=== PATIENT | female | born 1950 | race American Indian/Alaskan Native ===

== ENCOUNTER 2018-08-21 15:10 | Emergency (ER) | payer MEDICARE, BC, OTHER ==
[2018-08-21] MEDS ORDERED: Ketorolac 60 MG/2 ML SDV IM ONE (16:45)
--- NOTE | 2018-08-21 16:50 | EDM.PDOC ---
ED HPI GENERAL MEDICAL PROBLEM - General Chief Complaint: Back Pain or Injury Stated Complaint: sent by [facility] Time Seen by Provider: 08/21/18 16:37 Source of Information: Reports: Patient History Limitations: Reports: No Limitations - History of Present Illness INITIAL COMMENTS - FREE TEXT/NARRATIVE: HISTORY AND PHYSICAL: History of present illness: Patient is a 67-year-old female presents to the ED today with concern for low back pain 3 days. Patient rates her pain a 9 out of 10 and states that the pain radiates down the right side of her back and into her buttocks. Patient states she does have a history of kidney infection in the past that the pains is similar to that. Patient denies any pain with urination or blood in her urine. Patient denies any saddle anesthesia or retention or loss of bowel and bladder function. Patient denies injury or trauma to her back. Patient states she has also have a history of low back pain per her baseline. Patient states she has not taken anything for her symptoms today. Patient denies fever, chills, chest pain, shortness of breath, or cough. Denies headache, neck stiff ness, change in vision, syncope, or near syncope. Denies nausea, vomiting, abdominal pain, diarrhea, constipation, or dysuria. Has not noted any blood in urine or stool. Patient has been eating and drinking appropriately. Review of systems: As per history of present illness and below otherwise all systems reviewed and negative. Past medical history: As per history of present illness and as reviewed below otherwise noncontributory. Surgical history: As per history of present illness and as reviewed below otherwise noncontributory. Social history: See social history for further information Family history: As per history of present illness and as reviewed below otherwise noncontributory. Physical exam: General: Patient is alert, oriented, and in no acute distress. Patient sitting comfortably on exam table. HEENT: Atraumatic, normocephalic, pupils equal and reactive bilaterally, negative for conjunctival pallor or scleral icterus, mucous membranes moist, TMs normal bilaterally, throat clear, neck supple, nontender, trachea midline. No drooling or trismus noted. No meningeal signs. No hot potato voice noted. Lungs: Clear to auscultation, breath sounds equal bilaterally, chest nontender. Heart: S1S2, regular rate and rhythm without overt murmur Abdomen: Soft, nondistended, nontender. Negative for masses or hepatosplenomegaly. Negative for costovertebral tenderness. Pelvis: Stable nontender. Genitourinary: Deferred. Rectal: Deferred. Skin: Intact, warm, dry. No lesions or rashes noted. Extremities/Musculoskeletal: Atraumatic, negative for cords or calf pain. Neurovascular unremarkable. Negative pain to palpation of the complete spinous process. Patient does have pain to palpation of the paraspinal muscles surrounding the lumbar spine more so to the right. Patient has pain to palpation over the gluteus muscle the right buttocks. No obvious deformities, step-offs, or crepitus noted of the complete spine. Range of motion of spine is limited due to pain. Neuro: Awake, alert, oriented. Cranial nerves II through XII unremarkable. Cerebellum unremarkable. Motor and sensory unremarkable throughout. Exam nonfocal. Notes: Discussed the importance for follow-up with a primary care provider. Voices understanding and is agreeable to plan of care. Denies any further questions or concerns at this time. Diagnostics: Lumbar CT, UA Therapeutics: Toradol Prescription: Diclofenac, Flexeril Impression: Degenerative low back/lumbar disease Acute on chronic low back pain Plan: 1. Rest, ice, elevate the affected area. You can apply ice and or heat 15 minutes on, 15 minutes off. 2. Tylenol as directed for pain management or discomfort. Take medication as prescribed. 3. Follow up with the Orthopedic provider and primary care provider as discussed. Return to the ED as needed and as discussed. Definitive disposition and diagnosis as appropriate pending reevaluation and review of above. 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 Immunologic History: Reports: None Oncologic (Cancer) History: Reports: None Dermatologic History: Reports: None - Infectious Disease History Infectious Disease History: Reports: Chicken Pox, Measles - Past Surgical History Head Surgeries/Procedures: Reports: None HEENT Surgical History: Reports: Other (See Below) Social & Family History - Family History Family Medical History: Noncontributory - Tobacco Use Smoking Status *Q: Never Smoker Second Hand Smoke Exposure: No - Caffeine Use Caffeine Use: Reports: Coffee - Recreational Drug Use Recreational Drug Use: No ED ROS GENERAL - Review of Systems Review Of Systems: ROS reveals no pertinent complaints other than HPI. ED EXAM,LOWER BACK PAIN/INJURY - Physical Exam Exam: See Below (See dictation) Course - Vital Signs Last Recorded V/S: Last Vital Signs Temp 36.6 C 08/21/18 16:28 Pulse 74 08/21/18 16:28 Resp 16 08/21/18 16:28 BP 107/58 L 08/21/18 16:28 Pulse Ox 95 08/21/18 16:28 - Orders/Labs/Meds Labs: Laboratory Tests 08/21/18 Range/Units 17:50 Urine Color YELLOW Urine Appearance CLEAR Urine pH 5.5 (5.0-8.0) Ur Specific [place] 1.010 (1.001-1.035) Urine Protein NEGATIVE (NEGATIVE) mg/dL Urine Glucose (UA) >=1000 (NEGATIVE) mg/dL Urine Ketones NEGATIVE (NEGATIVE) mg/dL Urine Occult Blood NEGATIVE (NEGATIVE) Urine Nitrite NEGATIVE (NEGATIVE) Urine Bilirubin NEGATIVE (NEGATIVE) Urine Urobilinogen 0.2 (<2.0) EU/dL Ur Leukocyte Esterase NEGATIVE (NEGATIVE) Meds: Medications Discontinued Medications Generic Name Dose Route Start Last Admin Trade Name Freq PRN Reason Stop Dose Admin Ketorolac Tromethamine 60 mg 08/21/18 16:45 08/21/18 16:58 Toradol IM 08/21/18 16:46 60 mg ONETIME ONE Administration Departure - Departure Time of Disposition: 19:17 Disposition: Home, Self-Care 01 Clinical Impression: Acute exacerbation of chronic low back pain - Discharge Information Referrals: PCP,Unknown [Primary Care Provider] - Forms: ED Department Discharge Additional Instructions: The following information is given to patients seen in the emergency department who are being discharged to home. This information is to outline your options for follow-up care. We provide all patients seen in our emergency department with a follow-up referral. The need for follow-up, as well as the timing and circumstances, are variable depending upon the specifics of your emergency department visit. If you don't have a primary care physician on staff, we will provide you with a referral. We always advise you to contact your personal physician following an emergency department visit to inform them of the circumstance of the visit and for follow-up with them and/or the need for any referrals to a consulting specialist. The emergency department will also refer you to a specialist when appropriate. This referral assures that you have the opportunity for follow-up care with a specialist. All of these measure are taken in an effort to provide you with optimal care, which includes your follow-up. Under all circumstances we always encourage you to contact your private physician who remains a resource for coordinating your care. When calling for follow-up care, please make the office aware that this follow-up is from your recent emergency room visit. If for any reason you are refused follow-up, please contact the [facility] Emergency Department at and asked to speak to the emergency department charge nurse. [facility] [address] [place] [id number] [place] [address] 1. Rest, ice, elevate the affected area. You can apply ice and or heat 15 minutes on, 15 minutes off. 2. Tylenol as directed for pain management or discomfort. Take medication as prescribed. 3. Follow up with the Orthopedic provider and primary care provider as discussed. Return to the ED as needed and as discussed.
--- NOTE | 2018-08-21 19:12 | CT ---
INDICATION: Low back pain x4 days TECHNIQUE: CT lumbar spine without contrast. COMPARISON: None FINDINGS: Vertebral alignment: Alignment is normal. Vertebrae: There are no fractures or suspicious bony lesions. Discs and facet joints: Disc space narrowing and degenerative changes L1-L2. Extraspinal findings: Prevertebral soft tissues and visualized retroperitoneum are unremarkable. IMPRESSION: Disc space narrowing and degenerative changes at L1-L2. Dictated by Flaquito Lopez MD @ 08/21/2018 7:10:12 PM Please note that all CT scans at this facility use dose modulation, iterative reconstruction, and/or weight-based dosing when appropriate to reduce radiation dose to as low as reasonably achievable. Dictated by: Flaquito Lopez MD @ 08/21/2018 19:10:34 (Electronically Signed)
[2018-08-21 19:30] VITALS: BP 106/60
== END 2018-08-21 19:30 | disposition home or self-care (01) ==
LOC: MW.ED 15:10
DX: M51.16 Intervertebral disc disorders with radiculopathy, lumbar region (principal); E11.9 Type 2 diabetes mellitus without complications; I10 Essential (primary) hypertension; J44.9 Chronic obstructive pulmonary disease, unspecified; Z79.84 Long term (current) use of oral hypoglycemic drugs; Z88.5 Allergy status to narcotic agent
CPT/HCPCS: 72131; 81003; 96372; 99284; J1885

== ENCOUNTER 2019-05-16 21:31 | Emergency (ER) | payer MEDICARE, BC, OTHER ==
[2019-05-16 21:43] VITALS: BP 132/63; PULSE 83
[2019-05-16] MEDS ORDERED: Sodium Chloride 0.9% 10 ML Syringe FLUSH PRN (21:49)
[2019-05-16] MEDS ORDERED: Sodium Chloride 0.9% 2.5 ML Syringe FLUSH PRN (21:49)
--- NOTE | 2019-05-16 21:53 | EDM.PDOC ---
ED HPI GENERAL MEDICAL PROBLEM - General Chief Complaint: Diabetic Complaint Stated Complaint: BLOOD SUGAR HIGH Time Seen by Provider: 05/16/19 21:38 - History of Present Illness INITIAL COMMENTS - FREE TEXT/NARRATIVE: HISTORY AND PHYSICAL: History of present illness: The patient is a 68-year-old female who follows at [facility] but admits that she has not been to see her provider in quite some time and presents with vague complaints of lightheadedness and feeling generalized weakness and feeling like she might pass out that started this evening. The patient says her blood sugar at home has been a little bit variable and some mornings it is 90s but the other morning it was in the 200s and she was concerned about her diabetes. Her blood sugar at home when this started was 250 and here it is 280. She says that she does not feel dizzy like the room is spinning and she does not have a headache chest pain or shortness of breath no nausea no vomiting and no diarrhea. She has been eating and drinking normally and she has had normal urine output and stools. She said that she did not feel a focal weakness but it was her whole body. She does tell me that she has a history of peripheral vascular disease in her legs but she has never been diagnosed with anything centrally. She is not sure the last time she has had a hemoglobin A1c to check her diabetes. The patient denies flulike symptoms and has not had a fever. Review of systems: As per history of present illness and below otherwise all systems reviewed and negative. Past medical history: As per history of present illness and as reviewed below otherwise noncontributory. Surgical history: As per history of present illness and as reviewed below otherwise noncontributory. Social history: No reported history of drug or alcohol abuse. Family history: As per history of present illness and as reviewed below otherwise noncontributory. Physical exam: General: Well-developed well-nourished female who is nontoxic and moves easily in the ED without distress. Vital signs are noted by me HEENT: Atraumatic, normocephalic, pupils reactive, negative for conjunctival pallor or scleral icterus, mucous membranes moist, throat clear, neck supple, nontender, trachea midline. Lungs: Clear to auscultation, breath sounds equal bilaterally, chest nontender. Heart: S1S2, regular, negative for clicks, rubs, or JVD. Abdomen: Soft, nondistended, nontender. Negative for masses or hepatosplenomegaly. Negative for costovertebral tenderness. Pelvis: Stable nontender. Genitourinary: Deferred. Rectal: Deferred. Extremities: Atraumatic, negative for cords or calf pain. Neurovascular unremarkable. No pedal edema or leg asymmetry Neuro: Awake, alert, oriented. Cranial nerves II through XII unremarkable. Cerebellum unremarkable. Motor and sensory unremarkable throughout. Exam nonfocal. Diagnostics: EKG CBC CMP orthostatic vitals hemoglobin A1c troponin TSH UA with reflex CT scan of the head chest x-ray Therapeutics: IV O2 monitor IV fluids She states that she is feeling better and she is aware of her lab abnormalities including her hemoglobin A1c and the need for follow-up. At this point we will finish her second IV fluid bolus and she will have received a total of 1 L of fluid and I will repeat her orthostatics and make sure that we get a UA. She is aware of my concerns and pending these results we will plan for disposition. After the second IV fluid bolus the patient says she is feeling better and repeat orthostatics were performed and she is no longer orthostatic and is asymptomatic with performing this test. We will plan on follow-up at [facility] and I have strongly stressed to her the need for this follow-up to get better control on her diabetes as well as follow-up tongiovanni's visit. Did discuss with her her caffeine intake and the patient says that she usually drinks 1-2 pots of coffee a day and 1 glass of water. I stressed to her the need to push more hydrating fluids. Impression: Lightheadedness and generalized weakness, orthostasis resolved, mild dehydration /renal insufficiency, poorly controlled diabetes stable Definitive disposition and diagnosis as appropriate pending reevaluation and review of above. - Related Data Allergies Allergy/AdvReac Type Severity Reaction Status Date / Time meperidine [From Demerol] Allergy Cannot Verified 05/16/19 21:35 Remember Home Meds: Home Meds Diabetes Medication 12/23/15 [History] metFORMIN [Glucophage XR] 1,000 mg PO BIDMEALS 08/21/18 [History] Carvedilol [Coreg] 3.125 mg PO BID 05/16/19 [History] Clopidogrel [Plavix] 75 mg PO DAILY 05/16/19 [History] Empagliflozin [Jardiance] 10 mg PO DAILY 05/16/19 [History] Folic Acid 0.4 mg PO DAILY 05/16/19 [History] Gabapentin [Neurontin] 300 mg PO BEDTIME 05/16/19 [History] Losartan/Hydrochlorothiazide [Hyzaar 50-12.5 Tablet] 1 each PO DAILY 05/16/19 [ History] Magnesium Oxide 400 mg PO DAILY 05/16/19 [History] Simvastatin 20 mg PO DAILY 05/16/19 [History] Past Medical History Cardiovascular History: Reports: Hypertension, PVD Respiratory History: Reports: COPD Gastrointestinal History: Reports: None Genitourinary History: Reports: None [employer] History: Reports: Musculoskeletal History: Reports: None Neurological History: Reports: None Psychiatric History: Reports: None Endocrine/Metabolic History: Reports: Diabetes, Type II Hematologic History: Reports: Other (See Below) Other Hematologic History: clogged artery in leg. Immunologic History: Reports: None Oncologic (Cancer) History: Reports: None Dermatologic History: Reports: None - Infectious Disease History Infectious Disease History: Reports: None - Past Surgical History Head Surgeries/Procedures: Reports: None HEENT Surgical History: Reports: Other (See Below) Other Cardiovascular Surgeries/Procedures: angiogram Social & Family History - Family History Family Medical History: Noncontributory - Tobacco Use Smoking Status *Q: Never Smoker - Caffeine Use Caffeine Use: Reports: None - Recreational Drug Use Recreational Drug Use: No ED ROS GENERAL - Review of Systems Review Of Systems: Comprehensive ROS is negative, except as noted in HPI. ED EXAM GENERAL NO PERIP PULSE - Physical Exam Exam: See Below (see dictation) Course - Vital Signs Last Recorded V/S: Last Vital Signs Temp 36.6 C 05/16/19 21:41 Pulse 83 05/16/19 21:41 Resp 18 05/16/19 21:41 BP 132/63 05/16/19 21:41 Pulse Ox 98 05/16/19 21:41 Orthostatic Blood Pressure [ 109/56 Standing] Orthostatic Blood Pressure [ 141/70 Sitting] Orthostatic Blood Pressure [ 121/64 Supine] - Orders/Labs/Meds Orders: Active Orders 24 hr Category Date Time Status Cardiac Monitoring [RC] . DIRECTED Care 05/16/19 21:49 Active EKG Documentation Completion [RC] STAT Care 05/16/19 21:49 Active Glucose [Blood Glucose Check, Bedside] [RC] ONETIME Care 05/16/19 21:36 Active Orthostatic Vital Signs [RC] ASDIRECTED Care 05/16/19 21:49 Active Oxygen Therapy, ED [RC] ASDIRECTED Care 05/16/19 21:49 Active Pulse Oximetry [RC] ASDIRECTED Care 05/16/19 21:49 Active Sodium Chloride 0.9% [Normal Saline] 1,000 ml Med 05/16/19 22:45 Active IV ASDIRECTED Sodium Chloride 0.9% [Normal Saline] 500 ml Med 05/16/19 22:00 Active IV STAT Sodium Chloride 0.9% [Saline Flush] Med 05/16/19 21:49 Active 10 ml FLUSH ASDIRECTED PRN Sodium Chloride 0.9% [Saline Flush] Med 05/16/19 21:49 Active 2.5 ml FLUSH ASDIRECTED PRN Saline Lock Insert [OM.PC] Stat Oth 05/16/19 21:49 Ordered Medication Orders Sodium Chloride (Normal Saline) 500 mls @ 999 mls/hr IV STAT CAMILO Last Admin: 05/16/19 21:59 Dose: 999 mls/hr Sodium Chloride (Normal Saline) 1,000 mls @ 125 mls/hr IV ASDIRECTED CAMILO Last Infusion: 05/16/19 23:31 Dose: 125 mls/hr Admin: 05/16/19 23:11 Dose: 125 mls/hr Sodium Chloride (Saline Flush) 10 ml FLUSH ASDIRECTED PRN PRN Reason: Keep Vein Open Sodium Chloride (Saline Flush) 2.5 ml FLUSH ASDIRECTED PRN PRN Reason: Keep Vein Open Labs: Laboratory Tests 05/16/19 05/16/19 05/16/19 Range/Units 21:48 21:48 21:48 WBC 7.75 (4.0-11.0) K/uL RBC 4.68 (4.30-5.90) M/uL Hgb 13.9 (12.0-16.0) g/dL Hct 42.4 (36.0-46.0) % MCV 90.6 (80.0-98.0) fL MCH 29.7 (27.0-32.0) pg MCHC 32.8 (31.0-37.0) g/dL RDW Std Deviation 50.0 (28.0-62.0) fl RDW Coeff of Tabitha 15 (11.0-15.0) % Plt Count 261 (150-400) K/uL MPV 9.60 (7.40-12.00) fL Neut % (Auto) 63.0 (48.0-80.0) % Lymph % (Auto) 25.2 (16.0-40.0) % [place] % (Auto) 8.0 (0.0-15.0) % Eos % (Auto) 2.5 (0.0-7.0) % Baso % (Auto) 1.3 (0.0-1.5) % Neut # (Auto) 4.9 (1.4-5.7) K/uL Lymph # (Auto) 2.0 (0.6-2.4) K/uL [place] # (Auto) 0.6 (0.0-0.8) K/uL Eos # (Auto) 0.2 (0.0-0.7) K/uL Baso # (Auto) 0.1 (0.0-0.1) K/uL Nucleated RBC % 0.0 /100WBC Nucleated RBCs # 0 K/uL Sodium 128 L (136-145) mmol/L Potassium 4.8 (3.5-5.1) mmol/L Chloride 99 (98-107) mmol/L Carbon Dioxide 27.2 (21.0-32.0) mmol/L BUN 29 H (7.0-18.0) mg/dL Creatinine 1.7 H (0.6-1.0) mg/dL Est Cr Clr Drug Dosing 23.57 mL/min Estimated GFR (MDRD) 29.8 ml/min Glucose 295 H (74-106) mg/dL Hemoglobin A1c 10.2 H (4.5-6.2) % Calcium 9.2 (8.5-10.1) mg/dL Total Bilirubin 0.2 (0.2-1.0) mg/dL AST 7 L (15-37) IU/L ALT 15 (14-63) IU/L Alkaline Phosphatase 120 H (46-116) U/L Troponin I < 0.050 (0.000-0.056) ng/mL Total Protein 7.5 (6.4-8.2) g/dL Albumin 3.8 (3.4-5.0) g/dL Globulin 3.7 (2.6-4.0) g/dL Albumin/Globulin Ratio 1.0 (0.9-1.6) TSH 3rd Generation 1.25 (0.36-3.74) uIU/mL Urine Color Urine Appearance Urine pH (5.0-8.0) Ur Specific [place] (1.001-1.035) Urine Protein (NEGATIVE) mg/dL Urine Glucose (UA) (NEGATIVE) mg/dL Urine Ketones (NEGATIVE) mg/dL Urine Occult Blood (NEGATIVE) Urine Nitrite (NEGATIVE) Urine Bilirubin (NEGATIVE) Urine Urobilinogen (<2.0) EU/dL Ur Leukocyte Esterase (NEGATIVE) 05/16/19 Range/Units 23:35 WBC (4.0-11.0) K/uL RBC (4.30-5.90) M/uL Hgb (12.0-16.0) g/dL Hct (36.0-46.0) % MCV (80.0-98.0) fL MCH (27.0-32.0) pg MCHC (31.0-37.0) g/dL RDW Std Deviation (28.0-62.0) fl RDW Coeff of Tabitha (11.0-15.0) % Plt Count (150-400) K/uL MPV (7.40-12.00) fL Neut % (Auto) (48.0-80.0) % Lymph % (Auto) (16.0-40.0) % [place] % (Auto) (0.0-15.0) % Eos % (Auto) (0.0-7.0) % Baso % (Auto) (0.0-1.5) % Neut # (Auto) (1.4-5.7) K/uL Lymph # (Auto) (0.6-2.4) K/uL [place] # (Auto) (0.0-0.8) K/uL Eos # (Auto) (0.0-0.7) K/uL Baso # (Auto) (0.0-0.1) K/uL Nucleated RBC % /100WBC Nucleated RBCs # K/uL Sodium (136-145) mmol/L Potassium (3.5-5.1) mmol/L Chloride (98-107) mmol/L Carbon Dioxide (21.0-32.0) mmol/L BUN (7.0-18.0) mg/dL Creatinine (0.6-1.0) mg/dL Est Cr Clr Drug Dosing mL/min Estimated GFR (MDRD) ml/min Glucose (74-106) mg/dL Hemoglobin A1c (4.5-6.2) % Calcium (8.5-10.1) mg/dL Total Bilirubin (0.2-1.0) mg/dL AST (15-37) IU/L ALT (14-63) IU/L Alkaline Phosphatase (46-116) U/L Troponin I (0.000-0.056) ng/mL Total Protein (6.4-8.2) g/dL Albumin (3.4-5.0) g/dL Globulin (2.6-4.0) g/dL Albumin/Globulin Ratio (0.9-1.6) TSH 3rd Generation (0.36-3.74) uIU/mL Urine Color YELLOW Urine Appearance CLEAR Urine pH 7.5 (5.0-8.0) Ur Specific [place] 1.015 (1.001-1.035) Urine Protein NEGATIVE (NEGATIVE) mg/dL Urine Glucose (UA) >=1000 (NEGATIVE) mg/dL Urine Ketones NEGATIVE (NEGATIVE) mg/dL Urine Occult Blood NEGATIVE (NEGATIVE) Urine Nitrite NEGATIVE (NEGATIVE) Urine Bilirubin NEGATIVE (NEGATIVE) Urine Urobilinogen 0.2 (<2.0) EU/dL Ur Leukocyte Esterase NEGATIVE (NEGATIVE) Meds: Medications Generic Name Dose Route Start Last Admin Trade Name Freq PRN Reason Stop Dose Admin Sodium Chloride 500 mls @ 999 mls/hr 05/16/19 22:00 05/16/19 21:59 Normal Saline IV 999 mls/hr STAT CAMILO Administration Sodium Chloride 1,000 mls @ 125 mls/hr 05/16/19 22:45 05/16/19 23:31 Normal Saline IV 125 mls/hr ASDIRECTED CAMILO Infusion Sodium Chloride 10 ml 05/16/19 21:49 Saline Flush FLUSH ASDIRECTED PRN Keep Vein Open Sodium Chloride 2.5 ml 05/16/19 21:49 Saline Flush FLUSH ASDIRECTED PRN Keep Vein Open Departure - Departure Time of Disposition: 00:16 Disposition: Home, Self-Care 01 Condition: Good Clinical Impression: Lightheadedness, Orthostasis, Poorly controlled diabetes mellitus - Discharge Information Referrals: PCP,None [Primary Care Provider] - Forms: ED Department Discharge Additional Instructions: The following information is given to patients seen in the emergency department who are being discharged to home. This information is to outline your options for follow-up care. We provide all patients seen in our emergency department with a follow-up referral. The need for follow-up, as well as the timing and circumstances, are variable depending upon the specifics of your emergency department visit. If you don't have a primary care physician on staff, we will provide you with a referral. We always advise you to contact your personal physician following an emergency department visit to inform them of the circumstance of the visit and for follow-up with them and/or the need for any referrals to a consulting specialist. The emergency department will also refer you to a specialist when appropriate. This referral assures that you have the opportunity for followup care with a specialist. All of these measure are taken in an effort to provide you with optimal care, which includes your followup. Under all circumstances we always encourage you to contact your private physician who remains a resource for coordinating your care. When calling for followup care, please make the office aware that this follow-up is from your recent emergency room visit. If for any reason you are refused follow-up, please contact the [facility] emergency department at and ask to speak to the emergency department charge nurse. [facility]- [facility] Medicine and Family [address] [address] Push hydration and try to reduce your caffeine intake. Please connect with your provider at [facility] or 1 of our providers for reevaluation and further care and to get better control on your diabetic management. Return to ER as needed and as discussed Sepsis Event Note - Evaluation Sepsis Screening Result: No Definite Risk - Focused Exam Vital Signs: Vital Signs Temp Pulse Resp BP Pulse Ox 05/16/19 21:41 36.6 C 83 18 132/63 98 Date Exam was Performed: 05/17/19 Time Exam was Performed: 00:15 - My Orders Last 24 Hours: My Active Orders 05/16/19 21:49 Cardiac Monitoring [RC] . DIRECTED EKG Documentation Completion [RC] STAT Orthostatic Vital Signs [RC] ASDIRECTED Oxygen Therapy, ED [RC] ASDIRECTED Pulse Oximetry [RC] ASDIRECTED Sodium Chloride 0.9% [Saline Flush] 10 ml FLUSH ASDIRECTED PRN Sodium Chloride 0.9% [Saline Flush] 2.5 ml FLUSH ASDIRECTED PRN Saline Lock Insert [OM.PC] Stat 05/16/19 22:00 Sodium Chloride 0.9% [Normal Saline] 500 ml IV STAT 05/16/19 22:45 Sodium Chloride 0.9% [Normal Saline] 1,000 ml IV ASDIRECTED - Assessment/Plan Last 24 Hours: My Active Orders 05/16/19 21:49 Cardiac Monitoring [RC] . DIRECTED EKG Documentation Completion [RC] STAT Orthostatic Vital Signs [RC] ASDIRECTED Oxygen Therapy, ED [RC] ASDIRECTED Pulse Oximetry [RC] ASDIRECTED Sodium Chloride 0.9% [Saline Flush] 10 ml FLUSH ASDIRECTED PRN Sodium Chloride 0.9% [Saline Flush] 2.5 ml FLUSH ASDIRECTED PRN Saline Lock Insert [OM.PC] Stat 05/16/19 22:00 Sodium Chloride 0.9% [Normal Saline] 500 ml IV STAT 05/16/19 22:45 Sodium Chloride 0.9% [Normal Saline] 1,000 ml IV ASDIRECTED
[2019-05-16] MEDS ORDERED: Sodium Chloride 0.9% 500 ML IV SCH (22:00)
[2019-05-16 22:09] LABS: HEMOGLOBIN A1C 10.2 % (4.5-6.2)
[2019-05-16 22:29] LABS: BLOOD UREA NITROGEN,BUN 29 mg/dL (7.0-18.0); CARBON DIOXIDE,CO2 27.2 mmol/L (21.0-32.0); CHLORIDE,CL 99 mmol/L (98-107); GLUCOSE RANDOM 295 mg/dL (74-106); POTASSIUM,K 4.8 mmol/L (3.5-5.1); SODIUM,NA 128 mmol/L (136-145)
--- NOTE | 2019-05-16 22:34 | CT ---
INDICATION: Dizziness TECHNIQUE: CT head without contrast. COMPARISON: None available FINDINGS: There is mild age-related cortical atrophy. The ventricles are within normal limits. There is no mass effect or midline shift. A small low-density focus inferior to the left basal ganglia could represent a small old lacunar infarct or a dilated perivascular space. Punctate caudate head hypodensities may represent tiny lacunar infarcts. There is no loss of cazares-white differentiation. There is no evidence of an acute intracranial hemorrhage. No acute calvarial fracture is seen. There is opacification of the hypoplastic left frontal sinus. The mastoid air cells are clear. Post cataract surgery changes are seen. IMPRESSION: No evidence of an acute intracranial hemorrhage, mass effect or loss of cazares-white differentiation. Dictated by Sean Rust MD @ 05/16/2019 10:32:47 PM Please note that all CT scans at this facility use dose modulation, iterative reconstruction, and/or weight-based dosing when appropriate to reduce radiation dose to as low as reasonably achievable. Dictated by: Sean Rust MD @ 05/16/2019 22:32:51 (Electronically Signed)
[2019-05-16] MEDS ORDERED: Sodium Chloride 0.9% 1,000 ML IV SCH (22:45)
--- NOTE | 2019-05-16 23:09 | CR ---
INDICATION: WEAKNESS/DIZZINESS. 1 IMAGE SENT. TECHNIQUE: Chest 1 view. COMPARISON: None. FINDINGS: Cardiovascular and mediastinum: Heart size and vasculature are normal in caliber and appearance. Mediastinum is within normal limits. Lungs and pleural space: Lungs are clear. No sign of infiltrate or mass. No sign of pleural effusion. No pneumothorax. Bones and soft tissues: No significant findings. IMPRESSION: Unremarkable chest. Dictated by: Flaquito Lopez MD @ 05/16/2019 23:08:32 (Electronically Signed)
== END 2019-05-17 00:37 | disposition home or self-care (01) ==
LOC: MW.ED 21:31
DX: E86.0 Dehydration (principal); R53.1 Weakness; E11.65 Type 2 diabetes mellitus with hyperglycemia; N28.9 Disorder of kidney and ureter, unspecified; I10 Essential (primary) hypertension; J44.9 Chronic obstructive pulmonary disease, unspecified; Z88.8 Allergy status to other drugs, medicaments and biological substances; Z79.84 Long term (current) use of oral hypoglycemic drugs; Z79.02 Long term (current) use of antithrombotics/antiplatelets; Z79.899 Other long term (current) drug therapy
CPT/HCPCS: 36415; 70450; 71045; 80053; 81003; 83036; 84443; 84484; 85025; 93005; 96360; 96361; 99285; J7030; J7040; 99284

== ENCOUNTER 2022-02-08 06:35 | Day surgery (SDC) | payer MEDICARE, BC, OTHER ==
[2022-02-08] MEDS ORDERED: Naloxone 0.4 MG/ML SDV IVPUSH PRN (07:25)
[2022-02-08] MEDS ORDERED: Metoclopramide 10 MG/2 ML SDV IVPUSH PRN (07:25)
[2022-02-08] MEDS ORDERED: Ondansetron 4 MG/2 ML SDV IVPUSH PRN (07:25)
[2022-02-08] MEDS ORDERED: Albuterol 0.083% 2.5 MG/3 ML Neb Soln NEB PRN (07:25)
[2022-02-08] MEDS ORDERED: fentaNYL 50 MCG/ML SDV IVPUSH PRN (07:25)
[2022-02-08] MEDS ORDERED: HYDROmorphone 1 MG/ML Syringe IVPUSH PRN (07:25)
[2022-02-08] MEDS ORDERED: Morphine 2 MG/ML SYRINGE IVPUSH PRN (07:25)
[2022-02-08] MEDS ORDERED: Heparin Sodium 100 Units/ML 3 ML Syringe ONE (07:30)
[2022-02-08] MEDS ORDERED: Lactated Ringers 1,000 ML IV SCH (07:30)
[2022-02-08] MEDS ORDERED: Bupivacaine 0.5% 30 ML SDV ONE (07:30)
[2022-02-08] MEDS ORDERED: Lidocaine 1% 20 ML MDV ONE (07:31)
[2022-02-08] MEDS ORDERED: Propofol 200 MG/20 ML SDV ONE (07:36)
[2022-02-08] MEDS ORDERED: fentaNYL 100 MCG/2 ML SDV ONE (07:36)
[2022-02-08] MEDS ORDERED: Lidocaine 2% 5 ML SDV ONE ×2 (07:38→11:13)
[2022-02-08] MEDS ORDERED: Ondansetron 4 MG/2 ML SDV ONE (07:38)
[2022-02-08] MEDS ORDERED: Ketorolac 30 MG/ML SDV ONE (07:38)
[2022-02-08] MEDS ORDERED: Lidocaine 2% 11 ML Jelly Filled Syringe ONE (07:42)
[2022-02-08] MEDS ORDERED: ePHEDrine 50 MG/ML SDV ONE (08:24)
[2022-02-08 09:30] VITALS: PULSE 86
[2022-02-08 12:33] VITALS: BP 150/68
== END 2022-02-08 10:06 | disposition home or self-care (01) ==
LOC: MW.SDS 06:35
PROVIDERS: ATTEND Surgery
DX: C82.90 Follicular lymphoma, unspecified, unspecified site (principal); I10 Essential (primary) hypertension; J44.9 Chronic obstructive pulmonary disease, unspecified; E11.9 Type 2 diabetes mellitus without complications; F17.200 Nicotine dependence, unspecified, uncomplicated; I73.9 Peripheral vascular disease, unspecified; Z88.5 Allergy status to narcotic agent; Z79.84 Long term (current) use of oral hypoglycemic drugs; Z79.899 Other long term (current) drug therapy
CPT/HCPCS: 36561; 71045; 76000; 82947; A9270; J1642; J1885; J2405; J2704; J3010; J3490; J7120; 00532; 36415; 80053; 85025; 99100

== ENCOUNTER 2023-08-14 06:31 | Day surgery (SDC) | payer MEDICARE, BC, OTHER ==
[~2023-08-14 06:31] MED LIST: Sodium Chloride 0.9% 10 ML Syringe FLUSH PRN; Sodium Chloride 0.9% 2.5 ML Syringe FLUSH PRN; Sodium Chloride 0.9% 20 ML SDV IV PRN
[2023-08-14] MEDS ORDERED: Lidocaine 1% 2 ML ONE (07:17)
[2023-08-14] MEDS ORDERED: Bupivacaine 0.5% 30 ML SDV ONE (07:27)
[2023-08-14] MEDS ORDERED: Lidocaine 1% 20 ML MDV ONE (07:27)
[2023-08-14] MEDS: Lactated Ringers 1,000 ML IV SCH (07:31)
[2023-08-14] MEDS ORDERED: Ketamine HCL/NACL, ISO-OSM 50 MG/5 ML Syringe ONE (07:33)
[2023-08-14] MEDS ORDERED: Ondansetron 4 MG/2 ML SDV ONE (07:33)
[2023-08-14] MEDS ORDERED: propofoL 50 ML ONE (07:33)
[2023-08-14] MEDS ORDERED: Water For Injection, Sterile 20 ML ONE (07:42)
[2023-08-14] MEDS ORDERED: dexmedeTOMIDine HCl 200 MCG/2 ML SDV ONE (07:42)
[2023-08-14] MEDS ORDERED: Lidocaine 1% PF 2 ML SDV INJECT ONE (07:45)
[2023-08-14] MEDS ORDERED: Lidocaine 2% 5 ML SDV ONE (07:55)
[2023-08-14] MEDS ORDERED: fentaNYL 100 MCG/2 ML SDV ONE (07:56)
[2023-08-14] MEDS ORDERED: ceFAZolin 1 GM Vial ONE (08:01)
[2023-08-14 11:05] VITALS: BP 168/73; PULSE 82
== END 2023-08-14 09:45 | disposition home or self-care (01) ==
LOC: MW.SDS 06:31
PROVIDERS: ATTEND Surgery
DX: Z45.2 Encounter for adjustment and management of vascular access device (principal); C82.90 Follicular lymphoma, unspecified, unspecified site; I10 Essential (primary) hypertension; E11.51 Type 2 diabetes mellitus with diabetic peripheral angiopathy without gangrene; F17.210 Nicotine dependence, cigarettes, uncomplicated; Z79.02 Long term (current) use of antithrombotics/antiplatelets; Z79.4 Long term (current) use of insulin; Z79.899 Other long term (current) drug therapy; Z88.5 Allergy status to narcotic agent; Z88.1 Allergy status to other antibiotic agents
CPT/HCPCS: 36590; 82947; J0665; J0690; J2405; J2704; J3010; J7120; 00400; 99100; J3490